=== PATIENT | female | born 1990 | race Two or more races ===

== ENCOUNTER 2021-07-25 19:53 | Emergency (ER) | payer OTHER ==
[~2021-07-25] VITALS: Ht 157.5 cm; Wt 88.5 kg
== END 2021-07-25 21:02 | disposition home or self-care (01) ==
LOC: ER 19:53
DX: S01.511A Laceration without foreign body of lip, initial encounter (principal); V89.1XXA Person injured in unspecified nonmotor-vehicle accident, nontraffic, initial encounter; Y93.55 Activity, bike riding; Y92.89 Other specified places as the place of occurrence of the external cause; Z88.0 Allergy status to penicillin